=== PATIENT | female | born 1960 | race African-American/Black ===

== ENCOUNTER → 2017-12-05 | Day surgery (SDC) | payer MEDICARE, OTHER ==
[~2017-12-05] MED LIST: ALBUTEROL SULFATE 2.5 MG/3 ML NEBU. NEB PRN; ATROPINE 0.5 MG/5 ML DISP.SYRIN. IV PRN; CETI10TA16 PO; CHOL10003 PO; FERR325T14 PO; IV RINGERS SOLUTION,LACTATED 1,000 ML IV SCH; LEVO125T5 PO; LIDOCAINE 2% PF Vial for OR 5 ML VIAL. ONE; MIRA25TA PO; NALOXONE 0.4 MG/ML VIAL. IV PRN; ONDANSETRON PF 4 MG/2 ML VIAL. IV PRN; PROCHLORPERAZINE 10 MG/2 ML VIAL. IV PRN; PROPOFOL 40 ML IV ONE; TRIA1TAB3 PO
[2017-12-05 12:27] VITALS: BP 112/63
== END | disposition home or self-care (01) ==
LOC: SURG 09:52
PROVIDERS: ATTEND Internal Medicine Gastroenterology
DX: Z12.11 Encounter for screening for malignant neoplasm of colon (principal); E03.9 Hypothyroidism, unspecified; F32.9 Major depressive disorder, single episode, unspecified; I10 Essential (primary) hypertension; D64.9 Anemia, unspecified; F79 Unspecified intellectual disabilities
CPT/HCPCS: G0121; J2704; J7120; J2001

== ENCOUNTER 2018-07-25 21:12 | Inpatient (IN) | payer MEDICARE, OTHER ==
[~2018-07-25] VITALS: Ht 157.5 cm; Wt 130.3 kg
[~2018-07-25 21:12] MED LIST changes: -ALBUTEROL SULFATE 2.5 MG/3 ML NEBU. NEB PRN; -ATROPINE 0.5 MG/5 ML DISP.SYRIN. IV PRN; +CERTIRIZINE; +FURO-69 PO; -IV RINGERS SOLUTION,LACTATED 1,000 ML IV SCH; -LIDOCAINE 2% PF Vial for OR 5 ML VIAL. ONE; -NALOXONE 0.4 MG/ML VIAL. IV PRN; -ONDANSETRON PF 4 MG/2 ML VIAL. IV PRN; -PROCHLORPERAZINE 10 MG/2 ML VIAL. IV PRN; -PROPOFOL 40 ML IV ONE; +TRIA15CR50 TP
--- NOTE | 2018-07-25 21:35 | PHYS DOC ---
Past History Past Medical History: Anemia, Hypertension, Hypothyroid Additional Past Medical Histor: Down's Syndrome Past Medical History Unable to obtain due to hx of Down's Syndrome Past Surgical History: Hysterectomy Past Surgical History Unable to obtain due to hx of Down's Syndrome Social History Unable to obtain due to hx of Down's Syndrome Adult General Chief Complaint Chief Complaint: Dyspnea HPI HPI This is a 57-year-old female with a PMH of Down syndrome & dementia who was brought to the ED for an episode of labored breathing, noticed by her caregiver this evening, which has since resolved. The patient appeared to be having difficulty exhaling while lying in bed at home and has had a nonproductive cough today according to her caregiver. The patient also complained of having abdominal pain today, but is unable to characterize or localize it. Denies recent fevers, vomiting, diarrhea. Family reports some increased BLE edema which has since improved. Unable to obtain complete HPI due to patient's baseline mental status. Review of Systems Review of Systems Constitutional: Denies fever HENT: Reports rhinorrhea Respiratory: Reports nonproductive cough and labored breathing GI: Reports abdominal pain; Denies vomiting, diarrhea Unable to obtain complete ROS due to pt's baseline mental status Allergies Allergies Allergies Coded Allergies Type Severity Reaction Last Updated Verified No Known Drug Allergies 07/25/18 No Physical Exam Physical Exam Constitutional: Well developed, well nourished, no acute distress, non-toxic appearance. [] HENT: Normocephalic, atraumatic, dry mucous membranes. [] Eyes: Conjunctiva normal, no discharge, Amblyopia of left eye Neck: Normal range of motion, no tenderness, supple, no meningeal signs [] Cardiovascular: Heart rate regular rhythm, no murmur [] Lungs & Thorax: Bilateral breath sounds clear to auscultation [] Abdomen: Soft, no tenderness, mild distention noted Skin: Warm, dry, no erythema, no rash. [] Back: No tenderness, no CVA tenderness. [] Extremities: Bilateral LE pitting edema R > L with increased fullness in R calf , possible palpable cord to right calf Neurologic: Alert, normal orientation for pt's baseline per caregiver, no focal deficits noted. [] Psychologic: Affect normal, mood normal. [] EKG EKG 07/25/18 @ 2139 - Sinus arrhythmia with occasional premature junctional beats and LAD. No ST abnormalities. Radiology/Procedures Radiology/Procedures PROCEDURE: CT CHEST ABD PELVIS W/CONTRAST CT CHEST ABD PELVIS W/CONTRAST dated 07/25/2018 9:55 PM Indication:ABDOMINAL PAIN WITH NAUSEA, COUGH, 75MLS OMNI 300 IV CONTRAST. PT HAS DOWN'S SYNDROME. UNABLE TO FOLLOW BREATHING INSTRUCTIONS. Comparison: No comparison is available. Technique: CT images were performed using an infusion of 75 mL Omnipaque 300. One or more of the following individualized dose reduction techniques were utilized for this examination: 1. Automated exposure control 2. Adjustment of the mA and/or kV according to patient size 3. Use of iterative reconstruction technique Findings: There is some motion artifact. The patient could not follow breath-holding instructions. The lungs appear clear. The central airways are patent. No enlarged lymph nodes are seen. Incidental note is made of an aberrant right subclavian artery. Although this study was not performed to evaluate the pulmonary arterial tree, large bilateral pulmonary emboli are seen at the distal main pulmonary arteries extending into lobar and segmental branches. There is suggestion of some flattening of the interventricular septum, raising the possibility of increased right heart pressure. The liver and spleen are homogeneous in density and normal in configuration. The gallbladder was decompressed at the time of scanning. Both kidneys enhance with contrast. No mass or obstruction is seen. The adrenal glands are not enlarged. The pancreas appears normal. No adenopathy or soft tissue mass is seen in the abdomen. There is no apparent inflammatory process. Moderate stool is present through the colon. A normal appendix appears to be seen extending anteriorly from the cecum. Images through the pelvis show no abnormality of the distal ureters or bladder. No pelvic or inguinal adenopathy is seen. IMPRESSION: Large bilateral pulmonary emboli. There may be increased right heart pressure. No acute findings in the abdomen or pelvis. Critical results were telephoned to the emergency room physician. Electronically signed by: Mario Hansen Jr., MD (07/25/2018 10:26 PM) [facility] Course & Med Decision Making Course & Med Decision Making Pertinent Labs and Imaging studies reviewed. (See chart for details) Patient with past history of Down syndrome presents with report of episode of labored breathing and possible abdominal pain. Sats stable. EKG stable. Labs obtained and posted to chart. BUN/creatinine slightly elevated. IV fluid hydration provided. CT chest/abdomen/pelvis obtained with findings consistent for large lateral pulmonary emboli. Heparin bolus/drip initiated. Patient requiring admission for further evaluation and treatment. Discussed with Dr. Miller (hospitalist) who is in agreement with admission. Discussed findings and plan with family, who acknowledge understanding and agreement. Dragon Disclaimer Dragon Disclaimer This electronic medical record was generated, in whole or in part, using a voice recognition dictation system. Departure Departure: Impression: Primary Impression: Bilateral pulmonary embolism Disposition: ADMITTED INPATIENT Admitting Physician: Ignacio Miller Condition: GUARDED Referrals: TAMMY BRAVO (PCP) Critical Care Time Critical care time was 30 minutes which includes time at bedside, spent in discussion of patient's care with specialists and/or family members, with interpretation of laboratory and/or radiological studies and is exclusive of procedures. JAYLYN PATTERSON DO Jul 25, 2018 21:35
--- NOTE | 2018-07-25 21:47 | EKG ---
[address] [address] Test Date: 2018-07-25 Test Time: 21:39:54 Pat Name: HARSH ANGULO Department: Room: Gender: F Senior Property Manager: : 1960 Requested By: JAYLYN PATTERSON Order Number: [id number] Reading MD: Ryan Fu Measurements Intervals Hopkins Rate: 89 P: LA: QRS: -66 QRSD: 86 T: 34 QT: 368 QTc: 454 Interpretive Statements SINUS RHYTHM ABNORMAL LEFT AXIS DEVIATION LEFT ANTERIOR FASCICULAR BLOCK QRS(T) CONTOUR ABNORMALITY CONSIDER ANTEROSEPTAL MYOCARDIAL DAMAGE Electronically Signed On 07-27-2018 8:59:35 [employer]TER by Ryan Fu
[2018-07-25] MEDS ORDERED: IV NORMAL SALINE 1,000ML 1,000 ML IV ONE (22:00)
[2018-07-25] MEDS ORDERED: FAMOTIDINE 20 MG/2 ML VIAL IVP ONE (22:00)
[2018-07-25] MEDS ORDERED: CONTRAST GIVEN MC PRN (22:00)
[2018-07-25] MEDS ORDERED: IOHEXOL 300 MG/ML 75 ML VIAL. IV ONE (22:00)
[2018-07-25 22:04] LABS: BASO # 0.2 x10^3/uL (0.0-0.2); BASO % 4 % (0-3); EOS # 0.2 x10^3/uL (0.0-0.7); EOS % 3 % (0-3); HEMATOCRIT 44.4 % (36.0-47.0); HEMOGLOBIN 14.2 g/dL (12.0-15.5); LYMPH # 1.2 x10^3/uL (1.0-4.8); LYMPH % 26 % (24-48); MEAN CORPUSCULAR HEMOGLOBIN 28 pg (25-35); MEAN CORPUSCULAR HGB CONC 32 g/dL (31-37); MEAN CORPUSCULAR VOLUME 89 fL (79-100); MONO # 0.7 x10^3/uL (0.0-1.1); MONO % 15 % (0-9); NEUT # 2.3 x10^3uL (1.8-7.7); NEUT % 52 % (31-73); PLATELET COUNT 329 x10^3/uL (140-400); RED BLOOD COUNT 5.01 x10^6/uL (3.50-5.40); RED CELL DISTRIBUTION WIDTH 16.5 % (11.5-14.5); WHITE BLOOD COUNT 4.5 x10^3/uL (4.0-11.0)
[2018-07-25 22:26] LABS: ALBUMIN 2.5 g/dL (3.4-5.0); ALBUMIN/GLOBULIN RATIO 0.4 (1.0-1.7); CALCIUM 8.8 mg/dL (8.5-10.1); CREATININE 1.4 mg/dL (0.6-1.0); GFR 46.9; MAGNESIUM 2.2 mg/dL (1.8-2.4); POTASSIUM 3.4 mmol/L (3.5-5.1); TOTAL BILIRUBIN 0.1 mg/dL (0.2-1.0); TOTAL PROTEIN 8.3 g/dL (6.4-8.2)
[2018-07-25] MEDS ORDERED: HEPARIN 25,000UTS/500ML PREMIX 500 ML IV PRN (22:30)
[2018-07-25] MEDS ORDERED: HEPARIN for IV BOLUS 10,000 UNIT/10 ML VIAL. IV ONE (22:30)
--- NOTE | 2018-07-25 22:30 | RAD ---
CT CHEST ABD PELVIS W/CONTRAST dated 07/25/2018 9:55 PM Indication:ABDOMINAL PAIN WITH NAUSEA, COUGH, 75MLS OMNI 300 IV CONTRAST. PT HAS DOWN'S SYNDROME. UNABLE TO FOLLOW BREATHING INSTRUCTIONS. Comparison: No comparison is available. Technique: CT images were performed using an infusion of 75 mL Omnipaque 300. One or more of the following individualized dose reduction techniques were utilized for this examination: 1. Automated exposure control 2. Adjustment of the mA and/or kV according to patient size 3. Use of iterative reconstruction technique Findings: There is some motion artifact. The patient could not follow breath-holding instructions. The lungs appear clear. The central airways are patent. No enlarged lymph nodes are seen. Incidental note is made of an aberrant right subclavian artery. Although this study was not performed to evaluate the pulmonary arterial tree, large bilateral pulmonary emboli are seen at the distal main pulmonary arteries extending into lobar and segmental branches. There is suggestion of some flattening of the interventricular septum, raising the possibility of increased right heart pressure. The liver and spleen are homogeneous in density and normal in configuration. The gallbladder was decompressed at the time of scanning. Both kidneys enhance with contrast. No mass or obstruction is seen. The adrenal glands are not enlarged. The pancreas appears normal. No adenopathy or soft tissue mass is seen in the abdomen. There is no apparent inflammatory process. Moderate stool is present through the colon. A normal appendix appears to be seen extending anteriorly from the cecum. Images through the pelvis show no abnormality of the distal ureters or bladder. No pelvic or inguinal adenopathy is seen. IMPRESSION: Large bilateral pulmonary emboli. There may be increased right heart pressure. No acute findings in the abdomen or pelvis. Critical results were telephoned to the emergency room physician. Electronically signed by: Mario Hansen Jr., MD (07/25/2018 10:26 PM) [facility]
[2018-07-25 22:42] LABS: BILIRUBIN,URINE NEG (NEG); CLARITY,URINE CLEAR; COLOR,URINE YELLOW; GLUCOSE,URINE NEG (NEG)
[2018-07-25 22:43] LABS: BACTERIA,URINE 0 /HPF (0-FEW); NITRITE,URINE NEG (NEG); RBC,URINE OCC /HPF (0-2); SQUAMOUS EPITHELIAL CELL,UR FEW /LPF; UROBILINOGEN,URINE 0.2 mg/dL (0.2 mg/dL); WBC,URINE OCC /HPF (0-4)
[2018-07-25] MEDS ORDERED: ONDANSETRON PF 4 MG/2 ML VIAL. IV PRN (23:00)
[2018-07-25] MEDS ORDERED: ACETAMINOPHEN 325 MG TABLET PO PRN (23:00)
[2018-07-26] VITALS (7 sets, daily range): BP systolic 96–136; BP diastolic 52–79
[2018-07-26] MEDS: LEVOTHYROXINE 125 MCG TABLET PO SCH (06:14)
[2018-07-26] MEDS: MIRABEGRON 25 MG TAB.ER.24H PO SCH (08:43)
[2018-07-26] MEDS: CHOLECALCIFEROL (VITAMIN D3) 1,000 UNIT TABLET PO SCH (08:43)
[2018-07-26] MEDS: FERROUS SULFATE 325 MG TABLET. PO SCH (08:43)
[2018-07-26] MEDS: CETIRIZINE HCL 10 MG TABLET PO SCH (08:43)
[2018-07-26] MEDS: TRIAMTERENE/HCTZ 37.5/25MG TABLET. PO SCH (08:43)
[2018-07-26 13:11] LABS: CALCIUM 8.3 mg/dL (8.5-10.1); CREATININE 1.4 mg/dL (0.6-1.0); GFR 46.9; POTASSIUM 3.5 mmol/L (3.5-5.1)
--- NOTE | 2018-07-26 13:26 | HP ---
ADMIT DATE: 07/25/2018 HISTORY OF PRESENT ILLNESS: The patient is a 57-year-old -Citizen Of [place] female patient who was brought to the Emergency Room with an episode of labored breathing noticed by her caregiver yesterday evening that has since resolved. The patient appeared to be having difficulty exhaling while lying in bed at home and she has had a nonproductive cough according to her caregiver. The patient also complained of having abdominal pain, but unable to characterize it or localize it. She denied any fever, vomiting, diarrhea. Family report some increased bilateral lower extremity edema, which has since improved. The patient is known to have Down syndrome and mostly nonverbal. She was extensively investigated in the Emergency Room, has had a CT scan of the chest and abdomen and pelvis. Her CT scan of the chest showed she has large bilateral pulmonary emboli and there may be increased right heart pressure. However, there is no acute finding in the abdomen and pelvis. The patient was admitted, started on heparin drip. PAST MEDICAL HISTORY: Significant for hypertension, hypothyroidism, Down syndrome. PAST SURGICAL HISTORY: Significant for hysterectomy. FAMILY HISTORY: Unobtainable. SOCIAL HISTORY: She is apparently a resident at [facility]. She does not smoke, drink alcohol, or use any recreational drugs. ALLERGIES: She has no known drug allergies. MEDICATIONS: She is currently on following medications: She is on cetirizine 10 mg once a day, ferrous sulfate 325 mg once a day, triamterene/hydrochlorothiazide 37.5/25, she takes 2 tablets daily, and levothyroxine 125 mcg once a day, Myrbetriq 25 mg once a day, cholecalciferol for vitamin D3 international units once a day. REVIEW OF SYSTEMS: Unobtainable. PHYSICAL EXAMINATION: GENERAL: On arrival to the Emergency Room, the patient was slightly tachypneic. There is no pallor, jaundice, cyanosis, or thyromegaly. No jugular venous distention. Mild bilateral lower limb edema. VITAL SIGNS: Her heart rate was 96, blood pressure 111/69. Her temperature was 98, respiratory rate was 24, and oxygen saturation was 97% on room air. HEAD, EYES, EARS, NOSE, AND THROAT: Showed normocephalic, atraumatic. NECK: Supple. HEART: Showed normal first and second heart sounds. No gallop, rub, or murmur. CHEST: Clear to auscultation. No crepitation or rhonchi. ABDOMEN: Distended, soft, nontender. No guarding or rigidity. No organomegaly. All hernial orifice intact. Bowel sounds normal. EXTREMITIES: Showed no clubbing or cyanosis, but she has bilateral lower extremity pitting edema, more on the right than left with increased fullness of the right calf. NEUROLOGIC: Showed she was alert and basically at her baseline as per her caregiver with no obvious focal deficit. DIAGNOSTIC STUDIES: Her EKG showed that she was in sinus rhythm with occasional premature junctional beats and left axis deviation, no ST segment abnormalities. Given that she has large bilateral pulmonary emboli. She was admitted and was started on heparin. Her other lab work showed that her white cell count was 4500, hemoglobin 14, hematocrit 44, MCV 89, platelet count 329,000 with normal manual differential. Her chemistry showed a serum sodium 139, potassium 3.4, chloride 98, bicarbonate 37, anion gap of 4, BUN 25, creatinine 1.4, estimated GFR was 47 mL per minute. Her glucose was 103. Calcium was 8.8, magnesium 2.2. Total bilirubin, AST, ALT, alkaline phosphatase were normal. Her first set of cardiac enzymes showed troponin to be less than 0.17. Her total protein was 8.3, albumin was 2.5 and lipase was 94. Her prothrombin time was 10.5, INR 1.1, aPTT was 24. ASSESSMENT AND PLAN: In summary, this is a 57-year-old -Citizen [place] female patient with Down syndrome, who came with shortness of breath and was diagnosed with bilateral pulmonary emboli, will continue with heparin drip. Repeat her lab work tomorrow. switch her to one of the newer oral anticoagulant and discontinue heparin. GAURAV MARTE MD DR: MALATHI/jade JOB#: [id number] / [id number]
[2018-07-26] MEDS: APIXABAN 5 MG TABLET. PO SCH (14:56)
--- NOTE | 2018-07-26 17:01 | PN ---
DATE: 07/26/2018 SUBJECTIVE: The patient is sitting up in her bed, eating her lunch comfortably, in no apparent distress. She is mostly nonverbal; however, clinically she does not seem to be tachypneic. Her oxygen saturation was 97% on room air. OBJECTIVE: GENERAL: When I examined her, she looked well and was clearly in no apparent respiratory distress and no pallor, jaundice, cyanosis, or thyromegaly. No jugular venous distention. No lower limb edema. VITAL SIGNS: Her heart rate was 85, blood pressure was 102/71, temperature was 97.7, respiratory rate 22, and oxygen saturation was 99% on room air. HEAD, EYES, EARS, NOSE, AND THROAT: Showed normocephalic, atraumatic. NECK: Supple. HEART: Showed normal first and second sounds. No gallop, rub, or murmur. CHEST: Clear to auscultation. No crepitation or rhonchi. ABDOMEN: Distended, soft, nontender. No guarding or rigidity. No organomegaly. Hernial orifice intact. Bowel sounds normal. NEUROLOGIC: She is mostly nonverbal. She has Down syndrome. Her intake and output are incompletely recorded. LABORATORY DATA: Her lab work this morning showed a serum sodium 137, potassium 3.5, chloride 96, bicarbonate 34, anion gap of 5, BUN 20, creatinine 1.4, estimated GFR was 47 mL per minute. Her glucose was 96, calcium was 8.3. She has 3 sets of cardiac enzymes that were negative. Total protein was 8.3, albumin was 2.5. ASSESSMENT AND PLAN: Shortness of breath and bilateral pulmonary emboli for which we will discontinue heparin drip and start her on Eliquis 10 mg twice a day for a week and then 5 mg twice a day for at least 6 months. Other medical problems include hypertension, hypothyroidism, Down syndrome. GAURAV MARTE MD DR: MALATHI/jade JOB#: [id number] / [id number]
[2018-07-27 06:40] VITALS: BP 113/74
[2018-07-27] MEDS: APIXABAN 5 MG TABLET. PO SCH ×2 (06:49→16:54)
[2018-07-27] MEDS: LEVOTHYROXINE 125 MCG TABLET PO SCH (06:49)
[2018-07-27] MEDS: MIRABEGRON 25 MG TAB.ER.24H PO SCH (08:38)
[2018-07-27] MEDS: CETIRIZINE HCL 10 MG TABLET PO SCH (08:38)
[2018-07-27] MEDS: FERROUS SULFATE 325 MG TABLET. PO SCH (08:38)
[2018-07-27] MEDS: TRIAMTERENE/HCTZ 37.5/25MG TABLET. PO SCH (08:38)
[2018-07-27] MEDS: CHOLECALCIFEROL (VITAMIN D3) 1,000 UNIT TABLET PO SCH (08:38)
[2018-07-27 10:31] VITALS: BP 100/68
[2018-07-27 14:56] VITALS: BP 119/75
[2018-07-27 18:30] VITALS: BP 101/57
--- NOTE | 2018-07-27 19:47 | DS ---
DATE OF DISCHARGE: 07/27/2018 HOSPITAL COURSE: The patient is a 57-year-old -Martiniquais female patient with Down syndrome, who was brought to the Emergency Room by her caregiver from the [facility] with a complaint of difficulty breathing, especially when lying in bed at home, has also nonproductive cough. The patient have also complained of having abdominal pain, but unable to characterize it or localize it. She is known to have Down syndrome. She is mostly nonverbal. She was extensively investigated in the Emergency Room, had a CT scan of the chest, abdomen and pelvis. Her CT scan of the chest showed that she has large bilateral pulmonary emboli. There might be also some right heart pressure; however, there is no acute finding in the abdomen and pelvis. The patient was started on heparin drip initially and yesterday, we switched her to Eliquis 10 mg twice a day for 7 days and then 5 mg twice a day for 6 months. She remained hemodynamically stable, afebrile with maintaining her oxygen saturation at 94% on room air and a decision was made to discharge her back to [facility] to continue on Eliquis for at least 6 months. PHYSICAL EXAMINATION: GENERAL: When I examined her this morning, she looked well and was clearly in no apparent respiratory distress, pale, but no jaundice, cyanosis or thyromegaly. No jugular venous distension. Mild bilateral lower limb edema. VITAL SIGNS: Her heart rate was 77, blood pressure 100/68, temperature was 97.7, respiratory rate 20 and oxygen saturation was 94% on room air. HEAD, EYES, EARS, NOSE AND THROAT: Showed normocephalic, atraumatic. NECK: Supple. HEART: Showed normal first and second heart sounds with no gallop, rub or murmur. CHEST: Clear to auscultation. No crepitation or rhonchi. ABDOMEN: Distended, soft, nontender. No guarding or rigidity. No organomegaly. Hernial orifice intact. Bowel sounds normal. NEUROLOGIC: She has Down syndrome. She is mostly nonverbal, although all her cranial nerves are intact. She moves extremities without difficulty. LABORATORY DATA: On admission showed a white cell count of 4500, hemoglobin 14, hematocrit 44, MCV 89 and platelet count of 329,000. Her chemistry showed serum sodium of 137, potassium 3.5, chloride 98, bicarbonate 34, anion gap of 5, BUN 20, creatinine 1.4, estimated GFR was 47 mL per minute. Her glucose was 96 and calcium was 8.3. Prothrombin time was 10.5, INR 1.1. Urinalysis was essentially unremarkable and nasal screen for MRSA by PCR was negative. ASSESSMENT AND PLAN: The patient was discharged back to [facility] to continue on her cetirizine 10 mg once a day, cholecalciferol for vitamin D3 1000 international units once a day, ferrous sulfate 325 mg once a day, levothyroxine sodium 125 mcg once a day, Myrbetriq 25 mg once a day, triamterene/hydrochlorothiazide 37.5/25 two tablets once a day. She was also discharged to continue on apixaban 10 mg twice a day for 6 more days and then apixaban 5 mg twice a day for 6 months. FINAL DISCHARGE DIAGNOSES: 1. Bilateral pulmonary emboli. 2. Hypertension. 3. Hypothyroidism. 4. Down syndrome. GAURAV MARTE MD DR: MALATHI/jade JOB#: [id number] / [id number]
[2018-07-27 23:30] VITALS: BP 95/60
[2018-07-28] MEDS: LEVOTHYROXINE 125 MCG TABLET PO SCH (05:30)
[2018-07-28] MEDS: APIXABAN 5 MG TABLET. PO SCH (05:31)
[2018-07-28 05:45] VITALS: BP 103/62
[2018-07-28] MEDS: CHOLECALCIFEROL (VITAMIN D3) 1,000 UNIT TABLET PO SCH (08:02)
[2018-07-28] MEDS: TRIAMTERENE/HCTZ 37.5/25MG TABLET. PO SCH (08:02)
[2018-07-28] MEDS: FERROUS SULFATE 325 MG TABLET. PO SCH (08:02)
[2018-07-28] MEDS: CETIRIZINE HCL 10 MG TABLET PO SCH (08:02)
[2018-07-28] MEDS: MIRABEGRON 25 MG TAB.ER.24H PO SCH (08:02)
[2018-07-28 10:57] VITALS: BP 115/71
--- NOTE | 2018-07-28 12:57 | DS ---
DATE OF DISCHARGE: 07/28/2018 HOSPITAL COURSE: The patient is a 57-year-old -[place] female patient, a resident [facility], who was brought to the Emergency Room by her caregiver from the [facility] with a complaint of difficulty breathing, especially when lying in bed at home, has also had nonproductive cough. The patient has also complained of having abdominal pain, but unable to characterize it or localize it. She is known to have Down syndrome. She is mostly nonverbal. She was extensively investigated in the Emergency Room and had a CT scan of the chest, abdomen and pelvis. CT scan of the chest showed that she has large bilateral pulmonary emboli and there might be some right heart pressure. However, there is no acute finding in the abdomen and pelvis. The patient was started on heparin drip initially and we switched her to Eliquis 10 mg twice a day for 7 days and then 5 mg twice a day for 6 months. She remained hemodynamically stable, afebrile. She is maintaining her oxygen saturations 94-96% on room air and a decision was made to discharge her back to [facility] to continue with Eliquis as directed. PHYSICAL EXAMINATION: GENERAL: On examining her today, she looked well and was clearly in no apparent respiratory distress. No pallor, jaundice, cyanosis, or thyromegaly. No jugular venous distension. No limb edema. VITAL SIGNS: Her heart rate was 77, blood pressure was 115/71, temperature was 98.3, respiratory rate was 20, and oxygen saturation was 93% on room air. HEAD, EYES, EARS, NOSE AND THROAT: Normocephalic, atraumatic. NECK: Supple. HEART: Showed normal first and second heart sounds. No gallop, rub or murmur. CHEST: Clear to auscultation. No crepitation or rhonchi. ABDOMEN: Distended, soft, nontender. NEUROLOGIC: She is mostly nonverbal; however, all her cranial nerves are intact. She moves extremities without difficulty, although she is mostly bedbound, chair bound. Her intake over the last 24 hours was 1750. No output was recorded. LABORATORY WORK: Showed a white cell count 4500, hemoglobin 14, hematocrit 44, MCV 89 and platelet count 229,000. Serum sodium was 137, potassium 3.5, chloride 98, bicarbonate 34, anion gap of 5, BUN 20, creatinine 1.4, estimated GFR was 47 mL per minute. Her glucose was 96, calcium was 8.3. DISCHARGE MEDICATIONS: She will be discharged back to [facility] to continue on apixaban 10 mg twice a day for 5 more days and apixaban 5 mg twice a day for 6 months. Should continue also on cetirizine 10 mg once a day, cholecalciferol (vitamin D3) 1000 International unit once a day, ferrous sulfate 325 mg once a day, levothyroxine sodium 125 mcg once a day, Myrbetriq 25 mg once a day, triamterene/hydrochlorothiazide 1 tablet once a day. FINAL DISCHARGE DIAGNOSES: 1. Bilateral pulmonary emboli for which she is now on apixaban. 2. Hypertension, well controlled. 3. Hypothyroidism, clinically and biochemically euthyroid. 4. Down syndrome. GAURAV MARTE MD DR: MALATHI/jade JOB#: [id number] / [id number]
== END 2018-07-28 13:23 | disposition home or self-care (01) | DRG 175 ==
LOC: ER 21:12 → 1 SOUTH 23:13
PROVIDERS: ADMIT Internal Medicine; ATTEND Internal Medicine
DX: I26.99 Other pulmonary embolism without acute cor pulmonale (principal); E43 Unspecified severe protein-calorie malnutrition; E03.9 Hypothyroidism, unspecified; F03.90 Unspecified dementia, unspecified severity, without behavioral disturbance, psychotic disturbance, mood disturbance, and anxiety; I10 Essential (primary) hypertension; Q90.9 Down syndrome, unspecified; Z79.01 Long term (current) use of anticoagulants; Z79.899 Other long term (current) drug therapy; Z90.710 Acquired absence of both cervix and uterus
CPT/HCPCS: 36415; 71260; 74177; 80048; 80053; 81001; 82553; 83690; 83735; 84484; 85025; 85610; 85730; 87641; 90471; 90756; 93005; 96361; 96365; 96375; 96376; J1644; J3010; J3490; P9612; Q9967; 99285-25; J7030; Q2035

== ENCOUNTER → 2021-02-20 | Outpatient (CLI) | payer MEDICARE, OTHER ==
--- NOTE | 2021-02-27 14:55 | RAD ---
MG 2D BILAT SCREENING 02/20/2021 11:10 AM INDICATION: Asymptomatic screening mammogram. COMPARISON: 11/12/2017, 10/31/2016 TECHNIQUE: 2D CC and MLO projections were obtained of each breast. FINDINGS: Breast density: Category B: There are scattered areas of fibroglandular density. Right breast: There are no suspicious microcalcifications, masses or areas of architectural distortio n. Left breast: There are no suspicious microcalcifications, masses or areas of architectural distortion . Bilateral mammogram is compared to prior examinations appears unchanged. IMPRESSION: Negative bilateral mammogram. BI-RADS category: 1; Negative Recommendations: Recommend annual screening mammography in one year. Electronically signed by: Marily Salamanca MD (02/27/2021 2:53 PM) [id number]
== END ==
LOC: MAMMO 11:00
PROVIDERS: ATTEND Internal Medicine
DX: Z12.31 Encounter for screening mammogram for malignant neoplasm of breast (principal)
CPT/HCPCS: 77067